=== PATIENT | male | born 1930 | race Caucasian/White ===

== ENCOUNTER 2018-01-25 02:25 | Inpatient (IN) | payer OTHER, MEDICAID ==
[2018-01-25] VITALS (7 sets, daily range): BP systolic 97–105; BP diastolic 65–75
[~2018-01-25] VITALS: Ht 182.9 cm; Wt 78.6 kg
[~2018-01-25 02:25] MED LIST: AMLODIPINE BESYL5 M1 PO; ASPIR 8181 MG PO; CENTRUM SILVER1 TA4 PO; DIPHENHYDRAMINE25 MG PO; DONEPEZIL HYDRO10 M2 PO; DUONEB3 ML NEB; EYE VITAMIN; LEV500 PO; METOPROLOL SUCC50 M2 PO; PRA20 PO; PROAIR HFA0.09 MG/A1 INH; QVAR0.08 MG/Ac IH; TAMSULOSIN HCL0.4 MG PO; VITAMIN C500 M4 PO
[2018-01-25 03:31] LABS: BASOPHIL % 0.5 % (0-2); PLATELET COUNT 249 x10^3mcL (130-400)
[2018-01-25 03:32] LABS: RED CELL DISTRIBUTION WIDTH 17.6 % (11.5-14.5)
[2018-01-25] MEDS ORDERED: XARELTO10 M1 PO (03:33)
[2018-01-25] MEDS ORDERED: LOSARTAN POTASS25 M1 PO (03:34)
[2018-01-25] MEDS ORDERED: ALDACTONE25 MG PO (03:34)
[2018-01-25] MEDS ORDERED: LASIX40 MG PO (03:35)
[2018-01-25] MEDS ORDERED: ANORO ELLIPTA1 POW (03:38)
[2018-01-25 03:52] LABS: ALKALINE PHOSPHATASE 124 U/L (46-116); ALT/SGPT 110 U/L (16-63); AST/SGOT 34 U/L (15-37); BILIRUBIN TOTAL 1.13 mg/dL (0.20-1.00); CALCIUM 8.1 mg/dL (8.5-10.1); CARBON DIOXIDE 22.6 mmol/L (21-32); CHLORIDE SERUM 100 mmol/L (98-107); CREATININE SERUM 3.3 mg/dL (0.7-1.3); GLUCOSE SERUM 113 mg/dL (74-106); POTASSIUM SERUM 4.6 mmol/L (3.5-5.1); SODIUM SERUM 137 mmol/L (136-145); TOTAL PROTEIN, SERUM 6.2 g/dL (6.4-8.2)
[2018-01-25 03:56] LABS: ALBUMIN 2.6 g/dL (3.4-5.0)
[2018-01-25 03:58] LABS: CK-MB 2.5 ng/mL (0-3.6)
[2018-01-25] MEDS ORDERED: LEVO-T25 MCG PO (04:05)
[2018-01-25 04:38] LABS: MAGNESIUM 1.9 mg/dL (1.8-2.4); PHOSPHOROUS 4.9 mg/dL (2.5-4.9)
[2018-01-25 04:40] LABS: CHOLESTEROL/HDL RATIO 2.7
[2018-01-25 04:56] LABS: T3 TOTAL 0.58 ng/mL
[2018-01-25 05:05] LABS: FREE T4 1.18 ng/dL (0.76-1.46); FREE THYROXINE INDEX 2.1 ug/dL (1.4-4.5); T4(THYROXINE) 5.6 ug/dL (4.7-13.3)
[2018-01-25 05:26] LABS: TOTAL IRON BINDING CAPACITY 317 ug/dL (250-450)
[2018-01-25 05:28] LABS: IRON 15 ug/dL (65-170)
[2018-01-25 05:37] LABS: RED BLOOD CELLS 3.09 M/mm3 (4.52-5.90)
[2018-01-25 17:04] LABS: CALCIUM 8.5 mg/dL (8.5-10.1); CARBON DIOXIDE 22.9 mmol/L (21-32); CREATININE SERUM 2.2 mg/dL (0.7-1.3); GLUCOSE SERUM 170 mg/dL (74-106); SODIUM SERUM 134 mmol/L (136-145)
[2018-01-25 17:07] LABS: CHLORIDE SERUM 100 mmol/L (98-107); POTASSIUM SERUM 4.8 mmol/L (3.5-5.1)
[2018-01-26 04:06] LABS: UA SPECIFIC GRAVITY 1.025 (1.005-1.035); microscopic required? YES; urine erythrocyte NEGATIVE (NEGATIVE)
[2018-01-26 04:13] LABS: AMPHETAMINE QUAL UR NONE DETECTED (NEG <=1000)
[2018-01-26 05:19] VITALS: BP 117/83
[2018-01-26 06:27] LABS: BASOPHIL % 0.1 % (0-2); PLATELET COUNT 239 x10^3mcL (130-400)
[2018-01-26 06:29] LABS: CALCIUM 8.8 mg/dL (8.5-10.1); CARBON DIOXIDE 20.6 mmol/L (21-32); CHLORIDE SERUM 97 mmol/L (98-107); CREATININE SERUM 2.5 mg/dL (0.7-1.3); GLUCOSE SERUM 159 mg/dL (74-106); POTASSIUM SERUM 5.3 mmol/L (3.5-5.1); SODIUM SERUM 131 mmol/L (136-145)
[2018-01-26 06:35] LABS: RED CELL DISTRIBUTION WIDTH 17.6 % (11.5-14.5)
[2018-01-26 08:11] VITALS: BP 111/78
[2018-01-26 16:51] VITALS: BP 120/79
[2018-01-26 21:10] VITALS: BP 110/69
[2018-01-26 23:49] VITALS: BP 131/90
[2018-01-27 05:43] VITALS: BP 114/82
[2018-01-27 06:28] LABS: PLATELET COUNT 237 x10^3mcL (130-400)
[2018-01-27 06:54] LABS: CALCIUM 8.6 mg/dL (8.5-10.1); CARBON DIOXIDE 18.3 mmol/L (21-32); CHLORIDE SERUM 96 mmol/L (98-107); CREATININE SERUM 2.6 mg/dL (0.7-1.3); GLUCOSE SERUM 144 mg/dL (74-106); PHOSPHOROUS 5.2 mg/dL (2.5-4.9); POTASSIUM SERUM 5.1 mmol/L (3.5-5.1); SODIUM SERUM 128 mmol/L (136-145)
[2018-01-27 06:55] LABS: BASOPHIL % 0 % (0-2); RED CELL DISTRIBUTION WIDTH 17.5 % (11.5-14.5)
[2018-01-27 09:53] VITALS: BP 113/74
[2018-01-27 10:22] VITALS: BP 113/74
[2018-01-27 12:59] VITALS: BP 108/79
[2018-01-27 17:00] VITALS: BP 105/72
[2018-01-27 21:48] VITALS: BP 110/70
[2018-01-28 05:57] VITALS: BP 106/73
[2018-01-28 06:32] LABS: CALCIUM 8.6 mg/dL (8.5-10.1); CHLORIDE SERUM 96 mmol/L (98-107); CREATININE SERUM 2.8 mg/dL (0.7-1.3); GLUCOSE SERUM 98 mg/dL (74-106); MAGNESIUM 2.2 mg/dL (1.8-2.4); PHOSPHOROUS 5.2 mg/dL (2.5-4.9); SODIUM SERUM 129 mmol/L (136-145)
[2018-01-28 06:37] LABS: BASOPHIL % 0.1 % (0-2); PLATELET COUNT 243 x10^3mcL (130-400)
[2018-01-28 06:40] LABS: POTASSIUM SERUM 5.7 mmol/L (3.5-5.1)
[2018-01-28 06:54] LABS: RED CELL DISTRIBUTION WIDTH 17.5 % (11.5-14.5)
[2018-01-28 09:59] VITALS: BP 99/67
[2018-01-28 13:49] VITALS: BP 107/73
[2018-01-28 18:10] VITALS: BP 113/76
[2018-01-28 21:06] VITALS: BP 102/69
[2018-01-28 21:54] LABS: CALCIUM 8.4 mg/dL (8.5-10.1); CARBON DIOXIDE 23.4 mmol/L (21-32); CHLORIDE SERUM 96 mmol/L (98-107); CREATININE SERUM 2.5 mg/dL (0.7-1.3); GLUCOSE SERUM 98 mg/dL (74-106); POTASSIUM SERUM 4.9 mmol/L (3.5-5.1); SODIUM SERUM 132 mmol/L (136-145)
[2018-01-29] VITALS (10 sets, daily range): BP systolic 91–110; BP diastolic 47–68; Ht 182.9 cm; Wt 78.6 kg
[2018-01-29 06:59] LABS: BASOPHIL % 0.1 % (0-2); PLATELET COUNT 257 x10^3mcL (130-400)
[2018-01-29 07:01] LABS: CARBON DIOXIDE 23.4 mmol/L (21-32); CHLORIDE SERUM 96 mmol/L (98-107); CREATININE SERUM 2.5 mg/dL (0.7-1.3); GLUCOSE SERUM 85 mg/dL (74-106); MAGNESIUM 2.2 mg/dL (1.8-2.4); PHOSPHOROUS 4.1 mg/dL (2.5-4.9); POTASSIUM SERUM 4.3 mmol/L (3.5-5.1); SODIUM SERUM 129 mmol/L (136-145)
[2018-01-29 07:11] LABS: RED CELL DISTRIBUTION WIDTH 17.6 % (11.5-14.5)
[2018-01-29 21:08] LABS: SOURCE FLUID THORACENTESIS
[2018-01-29 21:13] LABS: APPEARANCE FLUID HAZY; COLOR FLUID YELLOW; LYMPHOCYTE FLUID 49 %; MONOCYTE FLUID 6 %; RBC FLUID 28 /cumm; WBC FLUID 93 /cumm
[2018-01-30 04:54] VITALS: BP 95/58
[2018-01-30 07:07] LABS: BASOPHIL % 0.2 % (0-2); PLATELET COUNT 279 x10^3mcL (130-400)
[2018-01-30 07:32] LABS: RED CELL DISTRIBUTION WIDTH 17.2 % (11.5-14.5)
[2018-01-30 07:38] LABS: CALCIUM 8.1 mg/dL (8.5-10.1); CARBON DIOXIDE 23.7 mmol/L (21-32); CHLORIDE SERUM 98 mmol/L (98-107); CREATININE SERUM 1.9 mg/dL (0.7-1.3); GLUCOSE SERUM 90 mg/dL (74-106); MAGNESIUM 2.1 mg/dL (1.8-2.4); POTASSIUM SERUM 4.2 mmol/L (3.5-5.1); SODIUM SERUM 131 mmol/L (136-145)
[2018-01-30 08:58] VITALS: BP 101/60
[2018-01-30 12:58] VITALS: BP 92/56
[2018-01-30 17:10] VITALS: BP 107/64
[2018-01-30 20:46] VITALS: BP 100/59
[2018-01-31 05:41] VITALS: BP 100/64
[2018-01-31 07:41] LABS: BASOPHIL % 0.3 % (0-2); PLATELET COUNT 283 x10^3mcL (130-400)
[2018-01-31] MEDS ORDERED: CARVEDILOL6.25 M1 PO (07:54)
[2018-01-31] MEDS ORDERED: LEVAQUIN500 M1 PO (07:59)
[2018-01-31] MEDS ORDERED: FERG PO (07:59)
[2018-01-31] MEDS ORDERED: NEU300 PO (08:00)
[2018-01-31] MEDS ORDERED: LAC PO (08:00)
[2018-01-31] MEDS ORDERED: VITC PO (08:01)
[2018-01-31 08:07] LABS: RED CELL DISTRIBUTION WIDTH 17.8 % (11.5-14.5)
[2018-01-31 08:30] LABS: CALCIUM 7.9 mg/dL (8.5-10.1); CARBON DIOXIDE 23.8 mmol/L (21-32); CHLORIDE SERUM 99 mmol/L (98-107); CREATININE SERUM 1.6 mg/dL (0.7-1.3); GLUCOSE SERUM 89 mg/dL (74-106); POTASSIUM SERUM 3.9 mmol/L (3.5-5.1); SODIUM SERUM 132 mmol/L (136-145)
[2018-01-31 08:57] VITALS: BP 93/45
[2018-01-31 09:30] VITALS: BP 108/54
[2018-01-31 13:13] VITALS: BP 108/54
[2018-01-31 13:32] VITALS: BP 99/53
[2018-01-31 17:25] VITALS: BP 97/54
== END 2018-02-03 14:33 | disposition hospice, home (50) | DRG 291 ==
LOC: ED 02:25 → DU 03:47
PROVIDERS: Emergency Medicine; Family Medicine Sports Medicine
PROC: 0W993ZZ Drainage of Right Pleural Cavity, Percutaneous Approach (ICD-10-PCS; principal; 2018-01-29)
DX: I13.0 Hypertensive heart and chronic kidney disease with heart failure and stage 1 through stage 4 chronic kidney disease, or unspecified chronic kidney disease (principal); N17.0 Acute kidney failure with tubular necrosis; E43 Unspecified severe protein-calorie malnutrition; J96.01 Acute respiratory failure with hypoxia; I50.43 Acute on chronic combined systolic (congestive) and diastolic (congestive) heart failure; J44.1 Chronic obstructive pulmonary disease with (acute) exacerbation; N39.0 Urinary tract infection, site not specified; J90 Pleural effusion, not elsewhere classified; F03.90 Unspecified dementia, unspecified severity, without behavioral disturbance, psychotic disturbance, mood disturbance, and anxiety; E03.9 Hypothyroidism, unspecified; N18.9 Chronic kidney disease, unspecified; I48.91 Unspecified atrial fibrillation; I25.5 Ischemic cardiomyopathy; I27.20 Pulmonary hypertension, unspecified; G62.9 Polyneuropathy, unspecified; D50.9 Iron deficiency anemia, unspecified; I25.10 Atherosclerotic heart disease of native coronary artery without angina pectoris; N40.0 Benign prostatic hyperplasia without lower urinary tract symptoms; E83.51 Hypocalcemia; I08.3 Combined rheumatic disorders of mitral, aortic and tricuspid valves; Z90.49 Acquired absence of other specified parts of digestive tract; Z87.891 Personal history of nicotine dependence; Z88.0 Allergy status to penicillin; Z82.49 Family history of ischemic heart disease and other diseases of the circulatory system; Z80.3 Family history of malignant neoplasm of breast; Z68.23 Body mass index [BMI] 23.0-23.9, adult; Z83.3 Family history of diabetes mellitus
CPT/HCPCS: 32555; 83880; 84439; 87804; 88344; 92610-GN; 97110-GP; 97116-GP; 97530-GP; C1729; J1644; J1940; J1956; J2916; J2920; J2930; J7030; J7620; J7633; Q0092; Q0162; Q0163